=== PATIENT | male | born 1995 | race Caucasian/White ===

== ENCOUNTER 2017-03-22 19:57 | Emergency (ER) | payer OTHER ==
[2017-03-22] MEDS: HYDROCODONE/APAP (5/325) TAB PO (21:28)
[2017-03-23] MEDS: AMPICILLIN/SULB 3 GM/NS (PMX) 100 ML IVPB (00:34)
[2017-03-23] MEDS: DEXAMETHASONE 10 MG/ML 1 ML INJ IV (00:35)
[2017-03-23] MEDS: ONDANSETRON 4 MG INJ IV (00:35)
[2017-03-23] MEDS: DIPHTH/TET/ACEL PERTUSS (ADULT) 0.5 ML VIAL IM* (00:36)
== END 2017-03-23 02:02 | disposition home or self-care (01) ==
LOC: FTE 03-23 02:02
DX: S02.31XA Fracture of orbital floor, right side, initial encounter for closed fracture (principal); S02.2XXA Fracture of nasal bones, initial encounter for closed fracture; V00.131A Fall from skateboard, initial encounter
CPT/HCPCS: 70480; 90715; 96374; 96375; 99285-25

== ENCOUNTER 2017-06-08 23:00 | Emergency (ER) | payer OTHER ==
[2017-06-09] MEDS ORDERED: LIDOCAINE 1% (MDV) 20 ML INJ SC
== END 2017-06-09 00:57 ==
LOC: E/R 06-09 00:57
DX: S41.011A Laceration without foreign body of right shoulder, initial encounter (principal); S51.812A Laceration without foreign body of left forearm, initial encounter; W26.8XXA Contact with other sharp object(s), not elsewhere classified, initial encounter; Y92.9 Unspecified place or not applicable
CPT/HCPCS: 12001; 99283-25